=== PATIENT | male | born 1945 | race Caucasian/White ===

== ENCOUNTER 2017-07-10 16:06 | Emergency (ER) | payer MEDICARE ==
[~2017-07-10] VITALS: Ht 177.8 cm; Wt 98.4 kg
[2017-07-10] MEDS ORDERED: SODIUM CHLORIDE 0.9% 1,000 ML IV ONE (18:06)
[2017-07-10] MEDS ORDERED: KETOROLAC TROMETH 30 MG/ML 1ML VIAL IV ONE (18:15)
[2017-07-10] MEDS ORDERED: METOCLOPRAMIDE HCL 5MG/ml INJ 2ml VIAL IV ONE (18:15)
[2017-07-10 18:44] LABS: Basophils # (auto) 0.1 uL; Eosinophils # (auto) 0.4 uL; Eosinophils % (auto) 4.8 % (0.0-7.0); Hematocrit 47.2 % (41.0-53.0); Hemoglobin 15.7 g/dL (13.5-17.5); Lymphocytes % (auto) 22.2 % (10.0-50.0); Mean Corpuscular Hemoglobin 31.9 pg (28.0-32.0); Mean Corpuscular Hgb Conc. 33.3 g/dL (32.0-36.0); Mean Corpuscular Volume 95.8 fL (80.0-100.0); Mean Platelet Volume 8.1 fL (6.9-10.8); Monocytes # (auto) 0.7 uL; Neutrophils # (auto) 5.8 uL; Nucleated Red Blood Cells % 0.2 %; Platelet Count (auto) 284 10^3/uL (140-450); Red Cell Distribution Width 14.4 % (11.8-14.3); White Blood Cell 9.1 10^3/uL (4.4-10.8)
[2017-07-10 18:47] LABS: INR 0.98 (0.9-1.15); Partial Thromboplastin Time 24.5 sec (22.64-33.71); Prothrombin Time 10.7 sec (9.37-12.3)
[2017-07-10 19:12] LABS: Albumin 3.8 g/dL (3.4-5.0); BUN/Creatinine Ratio 15.7; Bilirubin, Total 0.3 mg/dL (0.2-1.0); Calcium 11.7 mg/dL (8.5-10.1); Potassium 4.3 mmol/L (3.5-5.1); Total Protein 7.7 g/dL (6.4-8.2)
[2017-07-10] MEDS ORDERED: LORazepam 2MG/ML-1ML VIAL IV ONE (19:30)
[2017-07-10] MEDS ORDERED: IPRATROPIUM BROM 0.5 MG/2.5ML INH SOL HHN ONE (21:00)
[2017-07-10] MEDS ORDERED: ALBUTEROL SULF 2.5 MG/0.5ML(0.5%) NEB SOLN HHN ONE (21:00)
[2017-07-10 21:30] VITALS: BP 126/60
[2017-07-10] MEDS ORDERED: MORPHINE SULFATE 4 MG/ML SYRG IV ONE (22:30)
[2017-07-10] MEDS ORDERED: ONDANSETRON HCL 4 MG/2 ML VIAL IV ONE (22:30)
[2017-07-10] MEDS ORDERED: cefTRIAXone 1GM/10ml IVPUSH 10 ML IV ONE (22:30)
== END 2017-07-10 23:16 | disposition left against medical advice (07) ==
LOC: ER 16:06
DX: K46.9 Unspecified abdominal hernia without obstruction or gangrene (principal); M25.551 Pain in right hip; M54.9 Dorsalgia, unspecified; J44.9 Chronic obstructive pulmonary disease, unspecified; E78.5 Hyperlipidemia, unspecified; Z94.0 Kidney transplant status
CPT/HCPCS: 36415; 71020; 72100; 73502; 74176; 80053; 83690; 83735; 84443; 85025; 85610; 85730; 94640; 94761; 96361; 96374; 96375; 99285; J1885; J2060; J2270; J2405; J2765; J7030

== ENCOUNTER 2017-11-20 12:55 | Emergency (ER) | payer MEDICARE, MEDICAID ==
[~2017-11-20] VITALS: Ht 177.8 cm; Wt 88.0 kg
[2017-11-20 13:01] VITALS: BP 113/78
[2017-11-20] MEDS ORDERED: TETRACAINE HCL 0.5% OPTH(EYE) SOLN 4ML RIGHTEYE ONE (15:15)
== END 2017-11-20 16:01 | disposition home or self-care (01) ==
LOC: ER 12:55
DX: H10.021 Other mucopurulent conjunctivitis, right eye (principal); E11.9 Type 2 diabetes mellitus without complications; J44.9 Chronic obstructive pulmonary disease, unspecified; E78.5 Hyperlipidemia, unspecified; Z94.0 Kidney transplant status

== ENCOUNTER 2019-08-06 14:01 | Inpatient (IN) | payer MEDICARE ==
[~2019-08-06] VITALS: Ht 177.8 cm; Wt 90.7 kg
[~2019-08-06 14:01] MED LIST: ALPR1TAB7 PO; CINA30TA2 PO; DOLU1TAB5 PO; PRAV20TA3 PO; VENL150C2 PO; ZOLP12.564 PO
[2019-08-06] MEDS ORDERED: SODIUM CHLORIDE 0.9% 1,000 ML IV ONE ×3 (14:20→19:30)
[2019-08-06] MEDS ORDERED: cefTRIAXone 1GM/50ML D5W 50 ML IV ONE (14:30)
[2019-08-06 15:30] LABS: Basophils # (auto) 0.1 uL; Basophils % (auto) 1.4 % (0.0-2.0); Eosinophils # (auto) 0.1 uL; Eosinophils % (auto) 1.1 % (0.0-7.0); Hematocrit 45.2 % (41.0-53.0); Hemoglobin 15.4 g/dL (13.5-17.5); Lymphocytes # (auto) 1.9 uL; Lymphocytes % (auto) 22.2 % (10.0-50.0); Mean Corpuscular Hemoglobin 30.2 pg (28.0-32.0); Mean Corpuscular Hgb Conc. 34.1 g/dL (32.0-36.0); Mean Corpuscular Volume 88.7 fL (80.0-100.0); Monocytes # (auto) 1.2 uL; Monocytes % (auto) 13.8 % (0.0-12.0); Neutrophils # (auto) 5.1 uL; Neutrophils % (auto) 61.5 % (37.0-80.0); Nucleated Red Blood Cells % 0.3 %; Platelet Count (auto) 314 10^3/uL (140-450); Red Blood Cells 5.09 10^6/uL (4.5-5.90); Red Cell Distribution Width 15.1 % (11.8-14.3); White Blood Cell 8.4 10^3/uL (4.4-10.8)
[2019-08-06 15:45] LABS: Alanine Aminotransferase 27 U/L (16-61); Albumin 3.3 g/dL (3.4-5.0); Anion Gap 7 (5-15); Aspartate Aminotransferase 28 U/L (15-37); BUN/Creatinine Ratio 16.4; Blood Urea Nitrogen 20 mg/dL (7-18); Calcium 12.4 mg/dL (8.5-10.1); Carbon Dioxide 21 mmol/L (21-32); Chloride 111 mmol/L (98-107); GFR African American 75 mL/min; GFR Non-African American 62 mL/min; Glucose 191 mg/dL (74-106); Potassium 3.9 mmol/L (3.5-5.1); Sodium 139 mmol/L (136-145)
[2019-08-06 15:50] LABS: Alkaline Phosphatase 109 U/L (45-117); Bilirubin, Total 0.7 mg/dL (0.2-1.0); Total Protein 7.6 g/dL (6.4-8.2)
[2019-08-06 16:04] LABS: Partial Thromboplastin Time 39.3 sec (23.64-32.05)
[2019-08-06 16:09] LABS: INR 4.25 (0.9-1.15)
[2019-08-06] MEDS ORDERED: LACTULOSE 20Gm/30ML SOLN PO PRN (19:30)
[2019-08-06] MEDS ORDERED: ONDANSETRON HCL 4 MG/2 ML VIAL IV PRN (19:30)
[2019-08-06] MEDS ORDERED: NITROGLYCERIN 0.4 MG SL TAB SL PRN (19:30)
[2019-08-06] MEDS ORDERED: MORPHINE SULF INJ 2 MG/ML SYRINGE 1ML IV PRN (19:30)
[2019-08-06] MEDS ORDERED: ACETAMINOPHEN 500 MG TAB PO PRN (19:30)
[2019-08-06] MEDS ORDERED: HYDROcodone-ACET 5/325MG TAB PO PRN (19:30)
[2019-08-06 20:09] LABS: Phosphorus 1.6 mg/dL (2.5-4.90)
[2019-08-06 20:19] LABS: CRP High Sensitivity 4.42 mg/dL (< 0.3)
[2019-08-06] MEDS: RILPIVIRINE PO SCH (20:45)
[2019-08-06] MEDS: DOLUTEGRAVIR PO SCH (20:45)
[2019-08-06] MEDS: FAMOTIDINE (10MG/ML) 2ML VL IV SCH (21:26)
[2019-08-06] MEDS: DOCUSATE SOD 100 MG CAP PO SCH (21:27)
[2019-08-06] MEDS ORDERED: HALOPERIDOL LACTATE 5 MG/ML INJ VIAL IM ONE (21:45)
[2019-08-06] MEDS: SODIUM CHLORIDE 0.9% 1,000 ML IV SCH (21:51)
[2019-08-07] MEDS: SODIUM CHLORIDE 0.9% 1,000 ML IV SCH ×3 (03:04→19:27)
[2019-08-07 05:35] LABS: Basophils # (auto) 0.1 uL; Basophils % (auto) 1.1 % (0.0-2.0); Eosinophils # (auto) 0.4 uL; Eosinophils % (auto) 4.5 % (0.0-7.0); Hematocrit 46.7 % (41.0-53.0); Hemoglobin 14.6 g/dL (13.5-17.5); Lymphocytes # (auto) 2.5 uL; Lymphocytes % (auto) 30.9 % (10.0-50.0); Mean Corpuscular Hemoglobin 29.4 pg (28.0-32.0); Mean Corpuscular Hgb Conc. 31.3 g/dL (32.0-36.0); Mean Corpuscular Volume 93.9 fL (80.0-100.0); Monocytes # (auto) 0.9 uL; Monocytes % (auto) 11.8 % (0.0-12.0); Neutrophils # (auto) 4.1 uL; Neutrophils % (auto) 51.7 % (37.0-80.0); Nucleated Red Blood Cells % 0.1 %; Platelet Count (auto) 254 10^3/uL (140-450); Red Blood Cells 4.98 10^6/uL (4.5-5.90); Red Cell Distribution Width 15.2 % (11.8-14.3)
[2019-08-07 05:55] LABS: BUN/Creatinine Ratio 18.5; Calcium 11.5 mg/dL (8.5-10.1); Potassium 4.5 mmol/L (3.5-5.1)
[2019-08-07] MEDS: RILPIVIRINE PO SCH (08:00)
[2019-08-07] MEDS: DOLUTEGRAVIR PO SCH (08:00)
[2019-08-07] MEDS: DOCUSATE SOD 100 MG CAP PO SCH ×2 (10:00→21:43)
[2019-08-07] MEDS: FAMOTIDINE (10MG/ML) 2ML VL IV SCH ×3 (10:00→21:26)
[2019-08-07] MEDS: cefTRIAXone 1GM/50ML D5W 50 ML IV SCH (10:24)
[2019-08-07] MEDS ORDERED: DEXTROSE (50%) 50ML SYRG IV PRN (13:15)
[2019-08-07] MEDS ORDERED: WARF5TAB PO (13:26)
[2019-08-07 15:31] LABS: INR 4.17 (0.9-1.15)
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
--- NOTE | 2019-08-07 16:57 | NUR ---
SWALLOW EVALUATED. FAMILY PRESENT. PATIENT HAS OWN TEETH UPPER AND LOWER. PATIENT ABLE TO TOLERATE PUREE DIET TEXTURE WITH NECTAR THICKENED LIQUIDS WITH NO OVERT SIGNS OR SYMPTOMS OF ASPIRATION. PATIENT COUGHED ON THIN LIQUIDS TRIAL. NURSING NOTIFIED.
[2019-08-07] MEDS ORDERED: WARFARIN SODIUM 5 MG TAB PO SCH (17:00)
[2019-08-07] MEDS: InsuLIN REG 1unit/0.01ml Soln (100units/ml) SC SCH ×2 (17:00→21:26)
[2019-08-07] MEDS: ACCU-CHEK COMFORT CURVE STRIP VI SCH ×2 (17:00→21:26)
[2019-08-07 17:05] VITALS: BP 115/64
[2019-08-07] MEDS ORDERED: MYCO1TAB PO (17:30)
[2019-08-07] MEDS ORDERED: TACR1CAP4 PO ×2 (17:30)
[2019-08-07] MEDS ORDERED: SODI650T PO (17:30)
--- NOTE | 2019-08-07 18:32 | NUR ---
PT TRANSPORTED TO ROOM 291-B CARE ENDORSED TO RAMANDEEP DILLON
--- NOTE | 2019-08-07 19:18 | NUR ---
RECEIVED PT TO ROOM 291B, FROM [facility]. REPORT RECEIVED FROM OFF GOING NURSE. NOTED PT TO HAVE MEDS IN PHARMACY, PER OFFGOING NURSE, PICTURES TAKEN OF WOUNDS. NOTED PT TO HAVE SCRATCHES AND SCABS OVER BODY. PT ORIENTED TO SELF. SON AT BEDSIDE. SON STATED PT FELL WHEN HE WAS AT A SNF. 1:1 SITTER AT BEDSIDE. REPORT PASSED ON TO CATEGORY SPECIALIST NURSE.
--- NOTE | 2019-08-07 20:00 | NUR ---
Opening Shift Note RECEIVED REPORT FROM DAYSHIFT RN. ASSUMING ROLE OF CARE OF PATIENT AT THIS TIME. PATIENT SHOWING NO SIGN OF DISTRESS AT THIS TIME. PATIENT IS FATIGUED BUT CONFUSED. PATIENT ATTEMPTS TO GET OUT OF BED BUT IS QUICKLY REORIENTED TO STAY IN BED. ATTEMPTED TO ORIENT PATIENT TO FLOOR BUT PATIENT DOES NOT VERBALIZED UNDERSTANDING. BED LOWERED, CALL LIGHT WITHIN REACH AND PATIENT WILL BE ROUNDED ON EVERY HOUR AND NEEDED.
[2019-08-07 21:15] LABS: Alcohol, Urine < 3.0 mg/dL (0-5); Amphetamine Screen, Urine NEGATIVE (NEGATIVE); Barbiturate Scree,Urine NEGATIVE (NEGATIVE); Benzodiazephine Screen, Urine POSITIVE (NEGATIVE); Cannabinoid Screen, Urine POSITIVE (NEGATIVE); Cocaine Screen, Urine NEGATIVE (NEGATIVE); Opiate Scree,Urine NEGATIVE (NEGATIVE); Phencyclidine Screen, Urine NEGATIVE (NEGATIVE)
[2019-08-07 21:30] LABS: Urine Bacteria NONE SEEN /hpf (None Seen); Urine Blood 1+ /uL (Negative); Urine Hyaline Cast FEW /lpf (0 - 2); Urine Mucus FEW (None Seen); Urine Specific Gravity 1.019 (1.001-1.035); Urine WBC 7 /hpf (0 - 3)
[2019-08-07 22:00] VITALS: BP 123/73
--- NOTE | 2019-08-07 22:05 | NUR ---
HOSPITALIST PAGED PATIENT APPEARING ANXIOUS AT THIS TIME. PATIENT SCRATCHING SELF AND ATTEMPTING TO REMOVE TELE MONITOR. PATIENT IS NOT AGGRESSIVE BUT HAS NO MEDICATIONS FOR ANXIETY PRN. PATIENT REFUSES TO SWALLOW PILLS AT THIS TIME. PATIENT NORMALLY TAKES ZOLPIDEM OR ALPRAZOLAM. WILL AWAIT CALL BACK OR ORDERS.
[2019-08-07] MEDS ORDERED: HALOPERIDOL LACTATE 5 MG/ML INJ VIAL IM ONE (22:45)
[2019-08-07] MEDS: MORPHINE SULF INJ 2 MG/ML SYRINGE 1ML IV PRN (22:57)
--- NOTE | 2019-08-07 23:00 | NUR ---
ORDERS RECEIVED ORDERS RECEIVED FOR PATIENT FOR HALDOL. PATIENT AT THIS TIME IS FATIGUED AND NOT SHOWING SIGN OF DISTRESS. WILL HOLD MEDICATION AT THIS TIME. WILL CONTINUE TO MONITOR.
--- NOTE | 2019-08-08 01:50 | NUR ---
RECEIVED REPORT FROM RAMANDEEP SHEFFIELD. PATIENT IS AWAKE. NO DISTRESS NOTED. NO SOB NOTED. SITTER IS IN THE ROOM. WILL CONTINUE TO MONITOR PATIENT.
--- NOTE | 2019-08-08 02:13 | NUR ---
REPORT GIVEN TO AMINATA SABILLON.
[2019-08-08 05:00] VITALS: BP 125/80
[2019-08-08] MEDS: SODIUM CHLORIDE 0.9% 1,000 ML IV SCH ×3 (05:57→16:52)
[2019-08-08] MEDS: ACCU-CHEK COMFORT CURVE STRIP VI SCH ×4 (05:57→21:27)
[2019-08-08] MEDS: InsuLIN REG 1unit/0.01ml Soln (100units/ml) SC SCH ×4 (05:57→21:27)
[2019-08-08 07:27] LABS: Hematocrit 41.6 % (41.0-53.0); Hemoglobin 13.8 g/dL (13.5-17.5); Mean Corpuscular Hemoglobin 29.8 pg (28.0-32.0); Mean Corpuscular Hgb Conc. 33.3 g/dL (32.0-36.0); Mean Corpuscular Volume 89.5 fL (80.0-100.0); Platelet Count (auto) 268 10^3/uL (140-450); Red Blood Cells 4.64 10^6/uL (4.5-5.90); Red Cell Distribution Width 15.2 % (11.8-14.3); White Blood Cell 7.2 10^3/uL (4.4-10.8)
[2019-08-08 07:37] LABS: Band Neutrophils % (manual) 0; Basophils % (manual) 0 (0.0-2.0); Blast Cells 0; Myelocytes % 0; Promyelocytes % 0; Reactive Lymphocytes 0
[2019-08-08 07:46] LABS: Albumin 2.6 g/dL (3.4-5.0); Calcium 11.2 mg/dL (8.5-10.1); INR 3.1 (0.9-1.15); Potassium 3.4 mmol/L (3.5-5.1)
[2019-08-08 07:51] LABS: BUN/Creatinine Ratio 16.1; Bilirubin, Total 0.4 mg/dL (0.2-1.0); Total Protein 6.2 g/dL (6.4-8.2)
[2019-08-08 07:53] LABS: Eosinophils % (manual) 17 (0-7); Lymphocytes % (manual) 34 (10.0-50.0); Metamyelocytes % 1; Monocytes % (manual) 6 (0-12)
[2019-08-08] MEDS: RILPIVIRINE PO SCH (08:00)
[2019-08-08] MEDS: DOLUTEGRAVIR PO SCH (08:00)
[2019-08-08] MEDS: cefTRIAXone 1GM/50ML D5W 50 ML IV SCH (09:04)
[2019-08-08] MEDS: FAMOTIDINE (10MG/ML) 2ML VL IV SCH ×2 (09:04→21:27)
[2019-08-08] MEDS: DOCUSATE SOD 100 MG CAP PO SCH ×2 (09:04→21:27)
[2019-08-08] MEDS ORDERED: ZOLEDRONIC ACID 3 MG in SODIUM CHL 0.9% 100 ML IV ONE (11:00)
--- NOTE | 2019-08-08 13:52 | NUR ---
PER DR HUMPHRIES ORDER, STITCHES TO FOREHEAD REMOVED. DRY DRESSING PLACED OVER AREA, NO DIFFICULTY OR BLEEDING NOTED. PER SON, PT HAS HAD A BONE SCAN AT [facility] ([facility] IN THE PAST WEEKS. RELEASE FAXED TO [facility]'. SON DILAN AT BEDSIDE. CURRENTLY PT DOWN FOR MRI. 1:1 SITTER REMAINS AT BEDSIDE.
[2019-08-08] MEDS ORDERED: GABA100C9 PO (14:12)
[2019-08-08] MEDS ORDERED: ALBU0.084 NEB (14:12)
[2019-08-08] MEDS ORDERED: ZOLP10TA PO (14:12)
[2019-08-08] MEDS ORDERED: MONT10TA34 PO (14:12)
[2019-08-08] MEDS ORDERED: PRAV20TA3 PO (14:12)
[2019-08-08] MEDS ORDERED: TAMS0.4C36 PO (14:12)
[2019-08-08] MEDS ORDERED: PRE1T PO (14:12)
[2019-08-08] MEDS ORDERED: SULF400T11 PO (14:12)
[2019-08-08 18:10] VITALS: BP 118/73
--- NOTE | 2019-08-08 18:25 | NUR ---
WOUND CARE DONE TO SCABBED AREAS ON BILATERAL KNEES. COVERED WITH DRY DRESSING.
--- NOTE | 2019-08-08 19:30 | NUR ---
Opening Shift Note Assumed care of patient, he is asleep. No S/S of distress/SOB or pain. Sitter is at bedside for safety. Call light is within reach, side rails up x2, bed is in lowest position. Will continue to monitor for changes Q1hr and PRN.
--- NOTE | 2019-08-08 20:30 | NUR ---
Patient's son called, password given, and updated on POC. All questions and concerns answered.
[2019-08-08 22:00] VITALS: BP 125/62
[2019-08-09] MEDS: SODIUM CHLORIDE 0.9% 1,000 ML IV SCH ×2 (01:37→08:52)
[2019-08-09 05:00] VITALS: BP 131/72
[2019-08-09] MEDS: InsuLIN REG 1unit/0.01ml Soln (100units/ml) SC SCH ×4 (06:24→23:04)
[2019-08-09] MEDS: ACCU-CHEK COMFORT CURVE STRIP VI SCH ×4 (06:24→23:04)
[2019-08-09 06:41] LABS: INR 2.67 (0.9-1.15)
[2019-08-09 08:48] VITALS: BP 127/69
[2019-08-09] MEDS: cefTRIAXone 1GM/50ML D5W 50 ML IV SCH (08:51)
[2019-08-09] MEDS: DOLUTEGRAVIR PO SCH (08:52)
[2019-08-09] MEDS: RILPIVIRINE PO SCH (08:52)
[2019-08-09] MEDS: ALBUTEROL SULF 2.5 MG/0.5ML(0.5%) NEB SOLN NEB PRN (08:59)
[2019-08-09] MEDS: DOCUSATE SOD 100 MG CAP PO SCH ×2 (09:41→23:04)
[2019-08-09] MEDS: FAMOTIDINE (10MG/ML) 2ML VL IV SCH ×2 (09:41→23:03)
[2019-08-09 10:00] LABS: Cholesterol 108 mg/dL (< 200); HDL Cholesterol 22 mg/dL (40-59); LDL Cholesterol 65 mg/dL (< 100); Triglycerides 125 mg/dL (< 150)
--- NOTE | 2019-08-09 10:52 | NUR ---
NOTED PT TO BE SOB, INITIATED 02 AT 2 LITERS VIA N/C. NEW ORDERS FOR NEB TX. IMPROVEMENT NOTED. PRESENTLY PT OOB TO CHAIR, BREATHING UNLABORED. CONTINUES TO PULL AT LINES AND SCRATCH HIMSELF. 1:1 SITTER REMAINS AT BEDSIDE. SON DILAN UPDATED VIA TELEPHONE. WILL CONTINUE TO MONITOR.
[2019-08-09 12:45] LABS: BUN/Creatinine Ratio 11.8; Calcium 10.6 mg/dL (8.5-10.1); Potassium 3.7 mmol/L (3.5-5.1)
[2019-08-09 13:00] VITALS: BP 124/78
--- NOTE | 2019-08-09 16:45 | NUR ---
D/C Planning Per consult for [facility]. Contact [facility] Ph:( [phone]) Fax:) faxed medial records. Per Martha from [facility] orders where received and she will evaluate patient tomorrow 08/10/19. Will follow up tomorrow.
--- NOTE | 2019-08-09 18:00 | NUR ---
Respiratory note: ASSESSED PT FOR PRN TX PT WAS IN PAIN WITH FAMILY AT BEDSIDE, NO RESP DISTRESS NOTED. HR 82, RR 18, SPO2 96% ON ROOM AIR. BS ARE CLEAR AND DIMINISHED.NO INDICATION FOR TX AT THIS TIME. NOTIFIED SITTER TO PAGE RT IF TX IS NEEDED.
--- NOTE | 2019-08-09 18:36 | NUR ---
PT MARY KONG IN ROOM STATING HE NEEDS TO SPEAK WITH A TRANSVERSE ABDOMINAL MUSCLE SURGEON BECAUSE IN ORDER FOR PT TO GO TO [place], HE NEEDS A TRANSVERSE ABDOMINAL MUSCLE SURGEONPIECE PRESSER. INFORMED PT THAT PT DOES NOT HAVE DISCHARGE INSTRUCTIONS, THE TRANSVERSE ABDOMINAL MUSCLE SURGEON WILL MAKE NECESSARY ARRANGEMENTS WHEN THE PT IS DISCHARGED. PT MARY KONG CONTINUES TO ASK TO SPEAK TO A TRANSVERSE ABDOMINAL MUSCLE SURGEON, STATING, " I KNOW THERE IS A TRANSVERSE ABDOMINAL MUSCLE SURGEON AIRBRUSH ARTIST AT ALL TIMES. IT IS TERRIBLE THAT I HAVE BEEN ASKING FOR 4 DAYS TO SPEAK WITH A TRANSVERSE ABDOMINAL MUSCLE SURGEON AND NO ONE IS SPEAKING TO ME." CONTINUES TO SIT IN THE ROOM AT PT BEDSIDE.
[2019-08-09 19:16] VITALS: BP 124/78
--- NOTE | 2019-08-09 19:25 | NUR ---
Opening Shift Note Assumed care of patient, awake and alert 2. No S/S of distress/SOB or pain. Bed alarm is on. Call light is within reach, side rails up x2, bed is in lowest position. Sitter is at bedside for safety. Instructed on POC and to call for assist PRN, will continue to monitor for changes Q1hr and PRN.
[2019-08-09 22:00] VITALS: BP 107/60
[2019-08-10] MEDS: SODIUM CHLORIDE 0.9% 1,000 ML IV SCH ×4 (02:10→19:53)
[2019-08-10 05:00] VITALS: BP 124/72
[2019-08-10] MEDS: ACCU-CHEK COMFORT CURVE STRIP VI SCH ×4 (06:33→23:08)
[2019-08-10] MEDS: InsuLIN REG 1unit/0.01ml Soln (100units/ml) SC SCH ×4 (06:33→22:00)
--- NOTE | 2019-08-10 07:29 | NUR ---
Endorsed care to Dilma SABILLON. Patient is resting in bed, no S/S of distress or pain. Call light is within reach. Sitter is at bedside for safety.
--- NOTE | 2019-08-10 09:25 | NUR ---
Respiratory note: ROUTINE [place] MN TX CHECK. HR 85, RR 16, 98% ON RA, BREATH SOUNDS ARE CLEAR/DIMINISHED. NO SOB OR DISTRESS NOTED. PT WAS NOTIFY TO HAVE RT PAGE FOR NEEDED MN TX.
[2019-08-10 09:41] LABS: INR 3.13 (0.9-1.15); Partial Thromboplastin Time 35.6 sec (23.64-32.05)
--- NOTE | 2019-08-10 10:31 | NUR ---
CALENDER INSPECTOR FROM [facility] MADE ROUNDS ON PATIENT PER REP, THE PATIENT CANNOT BE DISCHARGED UNTIL THE PATIENT NO LONGER NEEDS MITTEN ON LEFT HAND. WILL REMOVE LENY AND REORIENT PATIENT THROUGH OUT SHIFT. SITTER AT BEDSIDE BED IN LOWEST LOCKED POSITION CALL LIGHT WITHIN REACH WILL CONTINUE TO MONITOR
[2019-08-10] MEDS: DOLUTEGRAVIR PO SCH (10:50)
[2019-08-10] MEDS: FAMOTIDINE (10MG/ML) 2ML VL IV SCH ×2 (10:50→23:12)
[2019-08-10] MEDS: RILPIVIRINE PO SCH (10:50)
[2019-08-10] MEDS: cefTRIAXone 1GM/50ML D5W 50 ML IV SCH (10:50)
[2019-08-10] MEDS: DOCUSATE SOD 100 MG CAP PO SCH ×2 (10:51→22:00)
--- NOTE | 2019-08-10 12:00 | NUR ---
MITTEN FROM LEFT HAND REMOVED SITTER AT BEDSIDE. BED IN LOWEST LOCKED POSITION BED ALARM ON WILL CONTINUE TO MONITOR
--- NOTE | 2019-08-10 14:25 | NUR ---
SON AT BEDSIDE SON AGITATED DEMANDING TO SPEAK TO PLANNING DIRECTOR. PATIENT BECOMING AGITATED MOVING IN BED VERBALIZING "NO" REPEATEDLY. PLANNING DIRECTOR CONTACTED, AND CAME TO SPEAK TO PATIENTS SON.
[2019-08-10] MEDS: MORPHINE SULF INJ 2 MG/ML SYRINGE 1ML IV PRN ×2 (15:01→20:43)
--- NOTE | 2019-08-10 15:18 | NUR ---
PER MD PATIENT WILL NO LONGER HAVE A SITTER. SON WILLING TO STAY OVER NIGHT TO BE WITH PATIENT
--- NOTE | 2019-08-10 15:53 | NUR ---
D/C Planning Followed up with [facility] spoke to Martha regarding patient.Martha advised me patient needs to be without a sitter for 24hrs in order for patient to go the facility. However, Martha assigned patient with a room number and accepting MD doctor once patient is clear he can go to room 99 accepting MD, Mohit Salvador. Received a called from RAMANDEEP Perera regarding patient son Nick wanting to speak to social service. Spoke to patient son Nick at bedside at 14:00 regarding placement to [facility] and d/c day. Advised Nick [facility] has accepted patient however, patient needs to be with out a sitter for 24hrs in order to be transfer to facility. Nick verbalize understanding d/c plan. Followed up called to Dr. Anthony regarding patient at 14:48 advised him what Martha from [facility] had informed me regarding the sitter. Transportation has been arrange with [facility] WILL CALL upon d/c day. RAMANDEEP Perera was informed. Addendum: 08/10/19 at 1649 by VISHNU JUÁREZ Amended: Links added.
[2019-08-10] MEDS ORDERED: HALOPERIDOL LACTATE 5 MG/ML INJ VIAL IM PRN (16:30)
--- NOTE | 2019-08-10 18:15 | NUR ---
Received report from RAMANDEEP Perera.
--- NOTE | 2019-08-10 18:20 | NUR ---
Received patient from Room 291B transferred to Room 202. Son is allowed to stay overnight as per Rickey Bonner
--- NOTE | 2019-08-10 18:26 | NUR ---
ENDORSED CARE TO ELBERT SABILLON GAVE REPORT.
--- NOTE | 2019-08-10 20:34 | NUR ---
PT ASSESSED, NO SOB OR WHEEZING NOTED. SAT 93% ON RA, MN TX NOT INDICATED AT THIS TIME.
--- NOTE | 2019-08-10 21:15 | NUR ---
PT'S SON AT BEDSIDE AND REQUESTING NEB TX AT THIS TIME. RT PAGED AT THIS TIME.
[2019-08-10 21:41] VITALS: BP 121/65
[2019-08-10] MEDS: ALBUTEROL SULF 2.5 MG/0.5ML(0.5%) NEB SOLN NEB PRN (21:42)
[2019-08-11] MEDS: SODIUM CHLORIDE 0.9% 1,000 ML IV SCH ×2 (03:27→11:27)
[2019-08-11 04:50] VITALS: BP 122/62
[2019-08-11 06:00] LABS: INR 2.82 (0.9-1.15); Partial Thromboplastin Time 38.2 sec (23.64-32.05)
[2019-08-11] MEDS: InsuLIN REG 1unit/0.01ml Soln (100units/ml) SC SCH ×2 (06:12→11:30)
[2019-08-11] MEDS: ALBUTEROL SULF 2.5 MG/0.5ML(0.5%) NEB SOLN NEB PRN (06:12)
[2019-08-11] MEDS: ACCU-CHEK COMFORT CURVE STRIP VI SCH ×2 (06:13→11:30)
--- NOTE | 2019-08-11 07:45 | NUR ---
Opening Shift Note: Assumed care of patient. Patient asleep at this time. Son at bedside. No S/S of distress/SOB or pain. Bed in lowest locked position, side rails up x 2, call light within reach. Patient and family Instructed on POC and to call for assist PRN, will continue to monitor for changes Q1hr and PRN.
[2019-08-11] MEDS: DOLUTEGRAVIR PO SCH (08:00)
[2019-08-11] MEDS: RILPIVIRINE PO SCH (08:00)
--- NOTE | 2019-08-11 08:01 | NUR ---
Dr. Anthony at bedside. Discussed POC with son.
[2019-08-11] MEDS: cefTRIAXone 1GM/50ML D5W 50 ML IV SCH (08:29)
[2019-08-11 09:00] VITALS: BP 100/50
[2019-08-11] MEDS: DOCUSATE SOD 100 MG CAP PO SCH (10:20)
[2019-08-11] MEDS: FAMOTIDINE (10MG/ML) 2ML VL IV SCH (10:20)
--- NOTE | 2019-08-11 12:20 | NUR ---
Discharge wound photos taken.
[2019-08-11 13:00] VITALS: BP 101/54
--- NOTE | 2019-08-11 13:00 | NUR ---
POM picked up from pharmacy, given to patient. Mycophenolic Tacrolimus Carla
[2019-08-11 13:16] VITALS: BP 100/50
--- NOTE | 2019-08-11 13:30 | NUR ---
Report called and given to Gloria at [facility]
--- NOTE | 2019-08-11 14:00 | NUR ---
Midline removed. catheter intact. patient tolerated well.
--- NOTE | 2019-08-11 14:15 | NUR ---
Tele box removed and sent to cardiac monitor.
--- NOTE | 2019-08-11 14:27 | NUR ---
Pt being trans to another hosp Order obtained for transfer of RYANN GOODMAN JR to [facility]. Report called/given to sirisha. Report given to EMS transport team. Medication reconciliation form completed and copy given to patient. Transported via [facility] along with copied chart and all personal belongings. No distress noted on time of departure. Family notified of destination and room number, verbalized understanding.
[2019-08-11] MEDS ORDERED: WARFARIN SODIUM 2 MG TAB PO ONE (17:00)
== END 2019-08-11 14:37 | DRG 64 ==
LOC: EDBD 14:01 → ER 14:10 → TELE 14:11 → TELE-EAST 08-07 15:50 → TELE-WESTW 08-07 18:05 → TELE-CENTR 08-10 18:57
PROVIDERS: ADMIT Nurse Practitioner Acute Care; ATTEND Family Medicine
DX: I63.9 Cerebral infarction, unspecified (principal); G93.41 Metabolic encephalopathy; N17.0 Acute kidney failure with tubular necrosis; N18.6 End stage renal disease; B19.10 Unspecified viral hepatitis B without hepatic coma; N39.0 Urinary tract infection, site not specified; D68.59 Other primary thrombophilia; I12.0 Hypertensive chronic kidney disease with stage 5 chronic kidney disease or end stage renal disease; T86.10 Unspecified complication of kidney transplant; E78.00 Pure hypercholesterolemia, unspecified; E78.5 Hyperlipidemia, unspecified; E11.65 Type 2 diabetes mellitus with hyperglycemia; K56.41 Fecal impaction; K46.9 Unspecified abdominal hernia without obstruction or gangrene; E86.0 Dehydration; Y83.8 Other surgical procedures as the cause of abnormal reaction of the patient, or of later complication, without mention of misadventure at the time of the procedure; E21.3 Hyperparathyroidism, unspecified; E11.22 Type 2 diabetes mellitus with diabetic chronic kidney disease; J44.9 Chronic obstructive pulmonary disease, unspecified; K43.9 Ventral hernia without obstruction or gangrene; T45.515A Adverse effect of anticoagulants, initial encounter; F32.9 Major depressive disorder, single episode, unspecified; Y92.89 Other specified places as the place of occurrence of the external cause; I69.320 Aphasia following cerebral infarction; Z79.899 Other long term (current) drug therapy; Z83.3 Family history of diabetes mellitus; Z86.711 Personal history of pulmonary embolism; Z86.718 Personal history of other venous thrombosis and embolism; Z87.442 Personal history of urinary calculi; Z90.49 Acquired absence of other specified parts of digestive tract; Z88.1 Allergy status to other antibiotic agents
CPT/HCPCS: 36415; 70450; 70551; 71045; 73130; 74176; 80048; 80053; 80061; 80307; 81001; 82533; 82962; 83036; 83605; 83880; 83970; 84100; 84154; 84443; 84484; 85007; 85025; 85027; 85379; 85610; 85652; 85730; 86141; 87040; 87081; 87086; 92610; 94640; 95819; 97110; 97116; 97163; 97530; G0378; J0696; J1815; J3489; J3490

== ENCOUNTER 2019-11-14 14:35 | Inpatient (IN) | payer MEDICARE, MEDICAID ==
[~2019-11-14] VITALS: Ht 182.9 cm; Wt 82.1 kg
[~2019-11-14 14:35] MED LIST changes: +ALBU0.084 NEB; +GABA100C9 PO; +MONT10TA34 PO; +MYCO1TAB PO; +PRE1T PO; +SODI650T PO; +SULF400T11 PO; +TACR1CAP4 PO; +TAMS0.4C36 PO; +WARF5TAB PO; +ZOLP10TA PO
[2019-11-14] MEDS ORDERED: ACCU-CHEK COMFORT CURVE STRIP VI ONE (14:45)
[2019-11-14 15:28] LABS: Basophils # (auto) 0.1 10 ^3/uL (0-0.2); Basophils % (auto) 0.8 % (0.0-2.0); Eosinophils # (auto) 0.2 10 ^3/uL (0-0.8); Eosinophils % (auto) 1.5 % (0.0-7.0); Hematocrit 49.9 % (41.0-53.0); Hemoglobin 16.8 g/dL (13.5-17.5); Lymphocytes # (auto) 2.9 10 ^3/uL (0.4-5.4); Lymphocytes % (auto) 22.2 % (10.0-50.0); Mean Corpuscular Hemoglobin 29.5 pg (28.0-32.0); Mean Corpuscular Hgb Conc. 33.7 g/dL (32.0-36.0); Mean Corpuscular Volume 87.6 fL (80.0-100.0); Monocytes # (auto) 1.2 10 ^3/uL (0-1.3); Monocytes % (auto) 9.5 % (0.0-12.0); Neutrophils # (auto) 8.5 10 ^3/uL (1.6-8.6); Nucleated Red Blood Cells % 0.2 %; Platelet Count (auto) 318 10^3/uL (140-450); Red Blood Cells 5.69 10^6/uL (4.5-5.90); Red Cell Distribution Width 15.6 % (11.8-14.3); White Blood Cell 12.9 10^3/uL (4.4-10.8)
[2019-11-14 15:36] LABS: Urine Bacteria NONE SEEN /hpf (None Seen); Urine Blood 1+ /uL (Negative); Urine Hyaline Cast FEW /lpf (0 - 2); Urine Mucus FEW (None Seen); Urine Specific Gravity 1.018 (1.001-1.035); Urine WBC 2 /hpf (0 - 3)
[2019-11-14 15:45] LABS: Alcohol, Urine < 3.0 mg/dL (0-5); Amphetamine Screen, Urine NEGATIVE (NEGATIVE); Barbiturate Scree,Urine NEGATIVE (NEGATIVE); Benzodiazephine Screen, Urine POSITIVE (NEGATIVE); Cannabinoid Screen, Urine NEGATIVE (NEGATIVE); Cocaine Screen, Urine NEGATIVE (NEGATIVE); Phencyclidine Screen, Urine NEGATIVE (NEGATIVE)
[2019-11-14 15:46] LABS: Albumin 3.3 g/dL (3.4-5.0); Potassium 3.7 mmol/L (3.5-5.1)
[2019-11-14 15:51] LABS: Bilirubin, Total 0.5 mg/dL (0.2-1.0)
[2019-11-14 15:52] LABS: Opiate Scree,Urine NEGATIVE (NEGATIVE)
[2019-11-14 15:55] LABS: Calcium 13.1 mg/dL (8.5-10.1)
[2019-11-14 16:10] LABS: Partial Thromboplastin Time 61.9 sec (23.64-32.05)
[2019-11-14 16:12] LABS: INR > 8.0 (0.9-1.15)
[2019-11-14] MEDS ORDERED: phytonadione 10 MG in SODIUM CHL 0.9% 50 ML IV ONE (16:30)
[2019-11-14] MEDS ORDERED: NITROGLYCERIN 0.4 MG SL TAB SL PRN (17:15)
[2019-11-14] MEDS ORDERED: ACETAMINOPHEN 325 MG TAB PO PRN (17:15)
[2019-11-14] MEDS ORDERED: hydrALAZINE HCL 20 MG/ML VL IV PRN (17:15)
[2019-11-14] MEDS ORDERED: ONDANSETRON HCL 4 MG/2 ML VIAL IV PRN (17:15)
[2019-11-14] MEDS ORDERED: SODIUM CHLORIDE 0.9% 1,000 ML IV ONE (17:15)
[2019-11-14] MEDS ORDERED: MORPHINE SULF INJ 2 MG/ML SYRINGE 1ML IV PRN (17:15)
[2019-11-14] MEDS ORDERED: HYDROcodone-ACET 5/325MG TAB PO PRN (17:15)
[2019-11-14 18:30] VITALS: BP 136/87
[2019-11-14] MEDS: PIPERACILLIN-TAZOB 2.25GM 50 ML IV SCH (19:27)
[2019-11-14] MEDS ORDERED: LORazepam 2MG/ML-1ML VIAL IV PRN (20:45)
[2019-11-14] MEDS: SODIUM CHLORIDE 0.9% 1,000 ML IV SCH (21:12)
[2019-11-14] MEDS: NOREPINEPHRINE 8 MG/250ML KIT 250 ML IV SCH (21:30)
[2019-11-14 21:39] VITALS: BP 136/87
[2019-11-15] VITALS (19 sets, daily range): BP systolic 64–168; BP diastolic 34–98
[2019-11-15] MEDS: PIPERACILLIN-TAZOB 2.25GM 50 ML IV SCH ×2 (00:13→06:15)
[2019-11-15 06:23] LABS: Basophils # (auto) 0.1 10 ^3/uL (0-0.2); Basophils % (auto) 0.8 % (0.0-2.0); Eosinophils # (auto) 0.3 10 ^3/uL (0-0.8); Eosinophils % (auto) 2.8 % (0.0-7.0); Hematocrit 47.5 % (41.0-53.0); Lymphocytes # (auto) 2.5 10 ^3/uL (0.4-5.4); Lymphocytes % (auto) 20.9 % (10.0-50.0); Mean Corpuscular Hemoglobin 29.5 pg (28.0-32.0); Mean Corpuscular Hgb Conc. 33.6 g/dL (32.0-36.0); Mean Corpuscular Volume 87.6 fL (80.0-100.0); Monocytes # (auto) 1.1 10 ^3/uL (0-1.3); Monocytes % (auto) 8.7 % (0.0-12.0); Neutrophils # (auto) 8.1 10 ^3/uL (1.6-8.6); Neutrophils % (auto) 66.8 % (37.0-80.0); Nucleated Red Blood Cells % 0.2 %; Platelet Count (auto) 294 10^3/uL (140-450); Red Blood Cells 5.42 10^6/uL (4.5-5.90); Red Cell Distribution Width 15.6 % (11.8-14.3); White Blood Cell 12.1 10^3/uL (4.4-10.8)
[2019-11-15 06:41] LABS: Albumin 3.1 g/dL (3.4-5.0); BUN/Creatinine Ratio 27.3; Calcium 12.1 mg/dL (8.5-10.1); Potassium 3.3 mmol/L (3.5-5.1)
[2019-11-15 06:44] LABS: Bilirubin, Total 0.9 mg/dL (0.2-1.0); Total Protein 7.1 g/dL (6.4-8.2)
[2019-11-15] MEDS: SODIUM CHLORIDE 0.9% 1,000 ML IV SCH (06:45)
[2019-11-15] MEDS: PIPERACILLIN-TAZOB 3.375GM 100 ML IV SCH ×2 (14:42→18:16)
[2019-11-15] MEDS: SODIUM BICARBONATE 50ML VIAL 50 ML in SOD CHL 0.45% 1,000 ML IV SCH ×3 (14:42→19:15)
[2019-11-15] MEDS ORDERED: SUCCINYLCHOLINE CHLORIDE 20 MG/ML 10ML VIAL IV ONE (18:55)
[2019-11-15] MEDS ORDERED: ETOMIDATE (2MG/ML) 20ML VIAL IV ONE (18:55)
[2019-11-15] MEDS ORDERED: MIDAZOLAM DRIP 50 mg/50mL 50 ML IV ONE (19:28)
[2019-11-15] MEDS ORDERED: NOREPINEPHRINE 8 MG/250ML KIT 250 ML IV ONE (19:28)
[2019-11-15] MEDS ORDERED: SODIUM BICARBONATE 8.4 % INJ 50ML VIAL IV ONE ×2 (19:45→23:55)
[2019-11-15] MEDS ORDERED: AMIODARONE HCL 900 MG IV ONE (19:53)
[2019-11-15] MEDS ORDERED: AMIODARONE HCL (50 MG/ ML) 3 ML VIAL IV ONE (19:53)
[2019-11-15] MEDS ORDERED: fentaNYL Drip 2500mCg/250mlNS 250 ML IV ONE (20:16)
[2019-11-15] MEDS: fentaNYL Drip 2500mCg/250mlNS 250 ML IV SCH (20:40)
[2019-11-15] MEDS: MIDAZOLAM DRIP 50 mg/50mL 50 ML IV SCH (20:40)
[2019-11-15 21:08] LABS: Basophils # (auto) 0 10 ^3/uL (0-0.2); Basophils % (auto) 0.5 % (0.0-2.0); Eosinophils # (auto) 0 10 ^3/uL (0-0.8); Lymphocytes # (auto) 1.4 10 ^3/uL (0.4-5.4); Lymphocytes % (auto) 14.3 % (10.0-50.0); Monocytes # (auto) 0.6 10 ^3/uL (0-1.3); Nucleated Red Blood Cells % 0.1 %
[2019-11-15 21:12] LABS: Eosinophils % (auto) 0.3 % (0.0-7.0); Monocytes % (auto) 5.7 % (0.0-12.0); Neutrophils # (auto) 7.8 10 ^3/uL (1.6-8.6); Neutrophils % (auto) 79.2 % (37.0-80.0); White Blood Cell 9.9 10^3/uL (4.4-10.8)
[2019-11-15 21:13] LABS: Hematocrit 53.3 % (41.0-53.0); Hemoglobin 17.3 g/dL (13.5-17.5); Mean Corpuscular Hemoglobin 28.8 pg (28.0-32.0); Mean Corpuscular Hgb Conc. 32.5 g/dL (32.0-36.0); Mean Corpuscular Volume 88.8 fL (80.0-100.0); Red Blood Cells 6.01 10^6/uL (4.5-5.90)
[2019-11-15 21:14] LABS: Platelet Count (auto) 336 10^3/uL (140-450); Red Cell Distribution Width 15.9 % (11.8-14.3)
[2019-11-15 21:25] LABS: Albumin 2.8 g/dL (3.4-5.0); BUN/Creatinine Ratio 21.5; Potassium 4.2 mmol/L (3.5-5.1)
[2019-11-15 21:28] LABS: Bilirubin, Total 0.8 mg/dL (0.2-1.0)
[2019-11-15 21:33] LABS: Lactic Acid w/Reflex 3.9 mmol/L (0.4-2.0)
[2019-11-15] MEDS: VASOPRESSIN 50 UNITS in D5W 5% 247.5 ML IV SCH (22:15)
[2019-11-15] MEDS ORDERED: PHENYLEPHRINE IV 250 ML IV ONE (22:22)
[2019-11-15] MEDS ORDERED: MAGNESIUM SULFATE 1GM/100ML 200 ML IV ONE (22:23)
[2019-11-15] MEDS: PHENYLEPHRINE IV 250 ML IV SCH (22:40)
[2019-11-15 23:56] LABS: INR 1.89 (0.9-1.15); Partial Thromboplastin Time 29.3 sec (23.64-32.05)
[2019-11-16] VITALS (139 sets, daily range): BP systolic 48–138; BP diastolic 23–82
[2019-11-16] MEDS: SODIUM BICARBONATE 50ML VIAL 150 ML in SOD CHL 0.45% 1,000 ML IV SCH ×4 (00:29→18:46)
[2019-11-16] MEDS ORDERED: SODIUM BICARBONATE 8.4 % INJ 50ML VIAL IV ONE ×3 (01:00→08:14)
[2019-11-16] MEDS: MAGNESIUM SULFATE 1GM/100ML 100 ML IV SCH ×2 (01:23)
[2019-11-16] MEDS: NOREPINEPHRINE 8 MG/250ML KIT 250 ML IV SCH ×5 (01:40→19:59)
[2019-11-16] MEDS: MIDAZOLAM DRIP 50 mg/50mL 50 ML IV SCH ×4 (02:04→20:01)
[2019-11-16 03:26] LABS: Basophils # (auto) 0 10 ^3/uL (0-0.2); Basophils % (auto) 0.2 % (0.0-2.0); Eosinophils # (auto) 0 10 ^3/uL (0-0.8); Eosinophils % (auto) 0.1 % (0.0-7.0); Hematocrit 47.3 % (41.0-53.0); Hemoglobin 15.8 g/dL (13.5-17.5); Lymphocytes # (auto) 1.7 10 ^3/uL (0.4-5.4); Lymphocytes % (auto) 10.4 % (10.0-50.0); Mean Corpuscular Hemoglobin 29.8 pg (28.0-32.0); Mean Corpuscular Hgb Conc. 33.5 g/dL (32.0-36.0); Mean Corpuscular Volume 88.8 fL (80.0-100.0); Monocytes # (auto) 0.9 10 ^3/uL (0-1.3); Monocytes % (auto) 5.6 % (0.0-12.0); Neutrophils # (auto) 13.3 10 ^3/uL (1.6-8.6); Neutrophils % (auto) 83.7 % (37.0-80.0); Nucleated Red Blood Cells % 0.1 %; Platelet Count (auto) 236 10^3/uL (140-450); Red Blood Cells 5.33 10^6/uL (4.5-5.90); Red Cell Distribution Width 15.6 % (11.8-14.3); White Blood Cell 15.9 10^3/uL (4.4-10.8)
[2019-11-16] MEDS: PHENYLEPHRINE IV 250 ML IV SCH ×10 (03:26→23:53)
[2019-11-16] MEDS: EPINEPHrine HCL 250 ML IV SCH ×2 (03:47→17:42)
[2019-11-16 03:48] LABS: Albumin 2.1 g/dL (3.4-5.0); Calcium 10.4 mg/dL (8.5-10.1)
[2019-11-16 03:53] LABS: BUN/Creatinine Ratio 17.3
[2019-11-16 03:59] LABS: Bilirubin, Total 1.5 mg/dL (0.2-1.0); Phosphorus 1.2 mg/dL (2.5-4.90); Total Protein 5.3 g/dL (6.4-8.2)
[2019-11-16] MEDS: PIPERACILLIN-TAZOB 3.375GM 100 ML IV SCH ×3 (05:44→13:04)
[2019-11-16] MEDS: VASOPRESSIN 50 UNITS in D5W 5% 247.5 ML IV SCH ×2 (08:11→20:01)
[2019-11-16] MEDS: LINEZOLID 600MG/300ML 300 ML IV SCH ×2 (09:35→21:48)
[2019-11-16] MEDS ORDERED: POTASSIUM EFFERVESENT TAB 25 MEQ ONE (11:14)
[2019-11-16] MEDS ORDERED: SODIUM CHLORIDE 0.9% 2,000 ML IV ONE (11:15)
[2019-11-16] MEDS ORDERED: POTASSIUM EFFERVESENT TAB 25 MEQ GT ONE (11:15)
[2019-11-16] MEDS ORDERED: DOPamine 1600MCG/ML D5W 250 ML IV ONE (15:22)
[2019-11-16] MEDS: DOPamine 1600MCG/ML D5W 250 ML IV SCH ×3 (15:30→22:25)
[2019-11-16] MEDS: PIPERACILLIN-TAZOB 2.25GM 50 ML IV SCH ×2 (17:47→23:54)
[2019-11-16] MEDS: fentaNYL Drip 2500mCg/250mlNS 250 ML IV SCH (20:40)
[2019-11-16] MEDS ORDERED: MYCOPHENOLATE SODIUM 180 MG PO SCH (22:00)
[2019-11-16] MEDS ORDERED: TACROLIMUS 1 MG CAP PO SCH (22:00)
[2019-11-17] VITALS (32 sets, daily range): BP systolic 8–72; BP diastolic 4–42
[2019-11-17] MEDS: NOREPINEPHRINE 8 MG/250ML KIT 250 ML IV SCH (00:31)
[2019-11-17] MEDS: EPINEPHrine HCL 250 ML IV SCH (00:31)
[2019-11-17] MEDS: SODIUM BICARBONATE 50ML VIAL 150 ML in SOD CHL 0.45% 1,000 ML IV SCH (01:49)
[2019-11-17] MEDS: PHENYLEPHRINE IV 250 ML IV SCH ×2 (01:49→03:43)
[2019-11-17] MEDS: DOPamine 1600MCG/ML D5W 250 ML IV SCH (02:14)
[2019-11-17 04:34] LABS: Basophils # (auto) 0 10 ^3/uL (0-0.2); Basophils % (auto) 0.1 % (0.0-2.0); Eosinophils # (auto) 0.1 10 ^3/uL (0-0.8); Eosinophils % (auto) 0.7 % (0.0-7.0); Hematocrit 39.8 % (41.0-53.0); Hemoglobin 12.8 g/dL (13.5-17.5); Lymphocytes # (auto) 1.2 10 ^3/uL (0.4-5.4); Lymphocytes % (auto) 6.7 % (10.0-50.0); Mean Corpuscular Hemoglobin 29.4 pg (28.0-32.0); Mean Corpuscular Hgb Conc. 32.3 g/dL (32.0-36.0); Monocytes # (auto) 0.6 10 ^3/uL (0-1.3); Monocytes % (auto) 3.1 % (0.0-12.0); Neutrophils # (auto) 15.9 10 ^3/uL (1.6-8.6); Neutrophils % (auto) 89.4 % (37.0-80.0); Platelet Count (auto) 135 10^3/uL (140-450); Red Blood Cells 4.37 10^6/uL (4.5-5.90); Red Cell Distribution Width 16.2 % (11.8-14.3); White Blood Cell 17.8 10^3/uL (4.4-10.8)
[2019-11-17 04:57] LABS: Albumin 1.1 g/dL (3.4-5.0); Calcium 7.8 mg/dL (8.5-10.1); Potassium 3.8 mmol/L (3.5-5.1)
[2019-11-17 05:14] LABS: BUN/Creatinine Ratio 16.5; Total Protein 3.7 g/dL (6.4-8.2)
[2019-11-17] MEDS ORDERED: TACROLIMUS 1 MG CAP PO SCH (10:00)
[2019-11-17] MEDS ORDERED: DOLUTEGRAVIR PO SCH (10:00)
[2019-11-17] MEDS ORDERED: RILPIVIRINE PO SCH (10:00)
== END 2019-11-17 04:48 | disposition expired | DRG 974 ==
LOC: ER 14:35 → EDBD 14:35 → TELE 14:36 → TELE-WESTW 18:11 → ICU WEST 11-15 18:38
PROVIDERS: ADMIT Internal Medicine; ATTEND Internal Medicine
PROC: 5A1945Z Respiratory Ventilation, 24-96 Consecutive Hours (ICD-10-PCS; principal; 2019-11-15)
PROC: 0BH17EZ Insertion of Endotracheal Airway into Trachea, Via Natural or Artificial Opening (ICD-10-PCS; 2019-11-15)
PROC: 05HA33Z Insertion of Infusion Device into Left Brachial Vein, Percutaneous Approach (ICD-10-PCS; 2019-11-15)
PROC: B54NZZA Ultrasonography of Left Upper Extremity Veins, Guidance (ICD-10-PCS; 2019-11-15)
PROC: 02HV33Z Insertion of Infusion Device into Superior Vena Cava, Percutaneous Approach (ICD-10-PCS; 2019-11-16)
PROC: 04HY32Z Insertion of Monitoring Device into Lower Artery, Percutaneous Approach (ICD-10-PCS; 2019-11-16)
PROC: 3E033XZ Introduction of Vasopressor into Peripheral Vein, Percutaneous Approach (ICD-10-PCS; 2019-11-16)
PROC: 4A133B1 Monitoring of Arterial Pressure, Peripheral, Percutaneous Approach (ICD-10-PCS; 2019-11-16)
PROC: 4A133J1 Monitoring of Arterial Pulse, Peripheral, Percutaneous Approach (ICD-10-PCS; 2019-11-16)
DX: A41.9 Sepsis, unspecified organism (principal); R65.21 Severe sepsis with septic shock; B20 Human immunodeficiency virus [HIV] disease; G93.41 Metabolic encephalopathy; J96.01 Acute respiratory failure with hypoxia; N17.0 Acute kidney failure with tubular necrosis; N39.0 Urinary tract infection, site not specified; E87.4 Mixed disorder of acid-base balance; J98.11 Atelectasis; T86.19 Other complication of kidney transplant; E83.52 Hypercalcemia; I69.320 Aphasia following cerebral infarction; K46.9 Unspecified abdominal hernia without obstruction or gangrene; G47.00 Insomnia, unspecified; F32.9 Major depressive disorder, single episode, unspecified; E78.5 Hyperlipidemia, unspecified; N18.9 Chronic kidney disease, unspecified; Z66 Do not resuscitate; B19.20 Unspecified viral hepatitis C without hepatic coma; T45.515A Adverse effect of anticoagulants, initial encounter; Z88.1 Allergy status to other antibiotic agents; Z86.711 Personal history of pulmonary embolism; Z86.718 Personal history of other venous thrombosis and embolism; Z79.01 Long term (current) use of anticoagulants; Y92.89 Other specified places as the place of occurrence of the external cause; Z79.899 Other long term (current) drug therapy; Z90.49 Acquired absence of other specified parts of digestive tract; Z87.442 Personal history of urinary calculi
CPT/HCPCS: 36415; 36600; 70450; 71045; 80053; 80307; 81001; 82306; 82805; 82962; 83605; 83735; 83880; 83970; 84100; 84484; 85025; 85610; 85730; 87040; 87070; 87077; 87086; 87186; 87205; 92610; 93970; 94002; 94003; 96374; 97163; 99291; C1751; G0378; J0171; J0330; J2250; J2543; J3430; J7060; J7507